=== PATIENT | female | born 1950 | race African-American/Black ===

== ENCOUNTER 2017-02-18 20:32 | Emergency (ER) | payer MEDICARE, MEDICAID ==
[~2017-02-18] VITALS: Ht 170.2 cm; Wt 84.0 kg
[~2017-02-18 20:32] MED LIST: AMLO10TA4 PO; Aspirin PO; CARI350T PO; HYDR-519 PO; OMEP20CA4 PO
[2017-02-18 22:00] LABS: CHLORIDE 115 mEq/L (98-107)
[2017-02-18 22:01] LABS: INR 1.2; PROTHROMBIN TIME 12.7 sec (9.4-11.6)
[2017-02-18 22:02] LABS: BASOPHILS % 1.3 % (0.0-2.0); EOSINOPHILS % 2.3 % (0.0-5.0); HEMATOCRIT. 34.3 % (36.0-48.0); HEMOGLOBIN. 11.2 g/dL (12.0-16.0); LYMPHOCYTES % 63.9 % (20.0-50.0); MEAN CORPUSCULAR HEMOGLOBIN 34.5 pg (28.0-32.0); MEAN CORPUSCULAR VOLUME 105.3 fL (81.0-99.0); MEAN PLATELET VOLUME 9.7 fl (7.4-10.4); MONOCYTES % 6.5 % (2.0-8.0); PLATELET 187 x1000/uL (130-400); RED BLOOD CELL COUNT 3.26 mill/uL (4.2-5.4); RED CELL DISTRIBUTION WIDTH 15.2 % (11.6-14.6)
[2017-02-18 22:03] LABS: CARBON DIOXIDE 16 mEq/L (21-32)
[2017-02-18 22:06] LABS: ETHANOL BLOOD 266 mg/dL
[2017-02-18 22:15] VITALS: BP 136/99
== END 2017-02-19 00:31 | disposition home or self-care (01) ==
LOC: ER 20:52
DX: F10.129 Alcohol abuse with intoxication, unspecified (principal); Y90.8 Blood alcohol level of 240 mg/100 ml or more; F32.9 Major depressive disorder, single episode, unspecified; I10 Essential (primary) hypertension
CPT/HCPCS: 36415; 80053; 85025; 85610; 99284; G0482

== ENCOUNTER 2018-02-28 15:11 | Emergency (ER) | payer MEDICARE, MEDICAID ==
[~2018-02-28] VITALS: Ht 149.9 cm; Wt 71.0 kg
[~2018-02-28 15:11] MED LIST changes: -CARI350T PO; +S350 PO
[2018-02-28 16:01] VITALS: BP 174/71
== END 2018-02-28 22:47 | disposition left against medical advice (07) ==
LOC: ER 15:11
DX: L29.9 Pruritus, unspecified (principal); F32.9 Major depressive disorder, single episode, unspecified; I10 Essential (primary) hypertension; F12.10 Cannabis abuse, uncomplicated; Z98.890 Other specified postprocedural states; Z90.49 Acquired absence of other specified parts of digestive tract
CPT/HCPCS: 99281

== ENCOUNTER 2018-03-10 13:52 | Emergency (ER) | payer MEDICARE, MEDICAID ==
[~2018-03-10] VITALS: Ht 157.5 cm; Wt 71.0 kg
[2018-03-10 13:58] VITALS: BP 136/58
== END 2018-03-10 16:56 | disposition home or self-care (01) ==
LOC: ER 15:14
DX: T49.5X5A Adverse effect of ophthalmological drugs and preparations, initial encounter (principal); I10 Essential (primary) hypertension; Y92.098 Other place in other non-institutional residence as the place of occurrence of the external cause
CPT/HCPCS: 99281

== ENCOUNTER 2021-12-13 22:55 | Emergency (ER) | payer MEDICARE, MEDICAID ==
[~2021-12-13] VITALS: Ht 149.9 cm; Wt 65.0 kg
[~2021-12-13 22:55] MED LIST changes: +AMLO-138 PO; -AMLO10TA4 PO; +GABA-532 PO; -S350 PO
[2021-12-14] MEDS ORDERED: HYDR-4001 MT (01:28)
[2021-12-14] MEDS ORDERED: HYDROCODONE/ACETAMINOPHEN 10/325MG TABLET PO ONE (01:30)
[2021-12-14] MEDS ORDERED: DEXAMETHASONE 4MG TABLET PO ONE (01:30)
[2021-12-14] MEDS ORDERED: KETOROLAC 60MG/2ML VIAL IM ONE (01:30)
[2021-12-14 02:05] VITALS: BP 114/78
== END 2021-12-14 02:05 | disposition home or self-care (01) ==
LOC: ER 22:55
DX: M54.2 Cervicalgia (principal); I10 Essential (primary) hypertension; Z79.899 Other long term (current) drug therapy
CPT/HCPCS: 96372; 99283; J1885; J8540

== ENCOUNTER 2022-03-15 17:01 | Inpatient (IN) | payer MEDICARE, MEDICAID ==
[~2022-03-15] VITALS: Ht 157.5 cm; Wt 76.3 kg
[~2022-03-15 17:01] MED LIST changes: +HYDR-4001 MT
[2022-03-15] MEDS ORDERED: ACETAMINOPHEN 650MG/20.3ML UDC PO ONE (19:30)
[2022-03-15] MEDS ORDERED: MORPHINE SULFATE 2 MG/ML CPJ (NOT FOR IM USE) IV ONE (22:45)
[2022-03-16 00:14] LABS: BASOPHILS % 1.6 % (0.0-2.0); EOSINOPHILS % 2.6 % (0.0-5.0); HEMATOCRIT. 30.3 % (36.0-48.0); HEMOGLOBIN. 9.8 g/dL (12.0-16.0); LYMPHOCYTES % 64.1 % (20.0-50.0); MEAN CORPUSCULAR HEMOGLOBIN 30.7 pg (28.0-32.0); MEAN CORPUSCULAR VOLUME 94.3 fL (81.0-99.0); MEAN PLATELET VOLUME 8.1 fl (7.4-10.4); MONOCYTES % 6.3 % (2.0-8.0); NEUTROPHILS % 25.4 % (40.0-76.0); PLATELET 369 x1000/uL (130-400); RED BLOOD CELL COUNT 3.21 mill/uL (4.2-5.4); RED CELL DISTRIBUTION WIDTH 15.9 % (11.6-14.6)
[2022-03-16 00:21] LABS: CHLORIDE 111 mEq/L (98-107)
[2022-03-16] MEDS ORDERED: IPRATROPIUM/ALBUTEROL 0.5-3(2.5)MG/3ML NEB HHN PRN (02:45)
[2022-03-16] MEDS ORDERED: LORAZEPAM 0.5MG TABLET PO PRN (02:45)
[2022-03-16] MEDS ORDERED: GUAIFENESIN 200MG/10ML SUGAR FREE UDC PO PRN (02:45)
[2022-03-16] MEDS ORDERED: ONDANSETRON HCL 4MG/2ML INJ IV PRN (02:45)
[2022-03-16] MEDS ORDERED: ACETAMINOPHEN 325MG TABLET PO PRN ×2 (02:45)
[2022-03-16] MEDS ORDERED: DIPHENHYDRAMINE 50MG/ML VIAL IV PRN (02:45)
[2022-03-16] MEDS: CLONIDINE 0.1MG TABLET PO PRN (03:05)
[2022-03-16] MEDS: HYDROCODONE/ACETAMINOPHEN 5/325MG TABLET PO PRN ×4 (03:05→22:30)
[2022-03-16] MEDS ORDERED: HYDRALAZINE 20MG/ML VIAL IV PRN (03:30)
[2022-03-16] MEDS: SODIUM CHLORIDE 0.9% 1,000 ML IV SCH ×3 (04:50→22:31)
[2022-03-16] MEDS: GABAPENTIN 300MG CAPSULE PO SCH ×4 (05:42→16:41)
[2022-03-16 06:30] LABS: CHLORIDE 108 mEq/L (98-107)
[2022-03-16 06:34] LABS: LDL CHOLESTEROL 20 mg/dL (5-100); TOTAL IRON BINDING CAPACITY 392 ug/dL (250-450)
[2022-03-16 06:40] LABS: HDL CHOLESTEROL 42 mg/dL (40-59)
[2022-03-16 06:41] LABS: HEMATOCRIT 27.4 % (36.0-48.0); MEAN CORPUSCULAR HEMOGLOBIN 30.7 pg (28.0-32.0); MEAN CORPUSCULAR VOLUME 92.9 fL (81.0-99.0); PLATELET 339 x1000/uL (130-400); RED BLOOD CELL COUNT 2.95 mill/uL (4.2-5.4); RED CELL DISTRIBUTION WIDTH 16.1 % (11.6-14.6)
[2022-03-16] MEDS ORDERED: MAGNESIUM 2 G PREMIX 50 ML IV SCH (08:15)
[2022-03-16] MEDS ORDERED: DEXTROSE 50% WATER 50ML SYRINGE IV SCH (08:15)
[2022-03-16] MEDS ORDERED: INSULIN REGULAR (HUMULIN R) 300UNITS/3ML VIAL IV SCH (08:15)
[2022-03-16] MEDS: AMLODIPINE 10MG TABLET PO SCH (09:00)
[2022-03-16] MEDS ORDERED: CLOPIDOGREL 75MG TABLET PO SCH (09:00)
[2022-03-16] MEDS: ENOXAPARIN 30MG/0.3ML SYR SUBCUT SCH (09:00)
[2022-03-16] MEDS: ASPIRIN 81MG TABLET PO SCH (09:00)
[2022-03-16] MEDS: DOCUSATE SODIUM 100MG CAPSULE PO PRN (10:35)
[2022-03-16] MEDS: KETOROLAC 30MG/ML VIAL IV PRN (10:43)
[2022-03-16 12:00] VITALS: BP 154/53
[2022-03-16] MEDS ORDERED: SODIUM POLYSTYRENE SULFONATE 15 G/60 ML BOT PO SCH (12:30)
[2022-03-16] MEDS ORDERED: OMEP10CA5 MT (15:42)
[2022-03-16] MEDS ORDERED: CARV6.2548 MT (15:42)
[2022-03-16] MEDS ORDERED: TRAZ-251 MT (15:42)
[2022-03-16] MEDS ORDERED: LOSA100T32 MT (15:42)
[2022-03-16] MEDS ORDERED: HYDR25TA MT (15:42)
[2022-03-16] MEDS ORDERED: CARV6.2548 PO (15:42)
[2022-03-16 15:55] VITALS: BP 144/57
[2022-03-16 16:00] VITALS: BP 142/55
[2022-03-16] MEDS ORDERED: INFLUENZA VACCINE 05/PF 0.5 ML SYRINGE IM ONE (16:45)
[2022-03-16] MEDS ORDERED: NALOXONE HCL 0.4MG/ML VIAL IV PRN (18:30)
[2022-03-16 20:00] VITALS: BP 155/32
[2022-03-16] MEDS: FAMOTIDINE 20MG TABLET PO SCH (22:29)
[2022-03-17] VITALS: BP 145/70
[2022-03-17] MEDS: HYDROCODONE/ACETAMINOPHEN 5/325MG TABLET PO PRN ×3 (02:43→21:44)
[2022-03-17 04:00] VITALS: BP 143/52
[2022-03-17] MEDS: KETOROLAC 30MG/ML VIAL IV PRN ×2 (05:39→11:13)
[2022-03-17 08:30] VITALS: BP 145/52
[2022-03-17] MEDS: GABAPENTIN 300MG CAPSULE PO SCH ×3 (09:18→16:57)
[2022-03-17] MEDS: ENOXAPARIN 30MG/0.3ML SYR SUBCUT SCH (09:18)
[2022-03-17] MEDS: ASPIRIN 81MG TABLET PO SCH (09:18)
[2022-03-17] MEDS: AMLODIPINE 10MG TABLET PO SCH (09:18)
[2022-03-17] MEDS: SODIUM CHLORIDE 0.9% 1,000 ML IV SCH ×2 (09:19→18:39)
[2022-03-17 12:00] VITALS: BP 151/56
[2022-03-17 16:00] VITALS: BP 150/53
[2022-03-17 20:00] VITALS: BP 164/61
[2022-03-17] MEDS: CLONIDINE 0.1MG TABLET PO PRN (20:32)
[2022-03-17] MEDS: FAMOTIDINE 20MG TABLET PO SCH (20:32)
[2022-03-18] VITALS: BP 131/86
[2022-03-18 04:00] VITALS: BP 139/40
[2022-03-18] MEDS: HYDROCODONE/ACETAMINOPHEN 5/325MG TABLET PO PRN ×4 (04:23→23:27)
[2022-03-18] MEDS: SODIUM CHLORIDE 0.9% 1,000 ML IV SCH ×2 (04:24→14:55)
[2022-03-18 08:00] VITALS: BP 147/48
[2022-03-18 08:05] LABS: BASOPHILS % 1.2 % (0.0-2.0); EOSINOPHILS % 2.9 % (0.0-5.0); HEMOGLOBIN. 9.4 g/dL (12.0-16.0); LYMPHOCYTES % 47.7 % (20.0-50.0); MEAN CORPUSCULAR HEMOGLOBIN 31.3 pg (28.0-32.0); MEAN CORPUSCULAR VOLUME 93.6 fL (81.0-99.0); MEAN PLATELET VOLUME 8.7 fl (7.4-10.4); MONOCYTES % 9.6 % (2.0-8.0); NEUTROPHILS % 38.6 % (40.0-76.0); PLATELET 340 x1000/uL (130-400); RED BLOOD CELL COUNT 2.99 mill/uL (4.2-5.4); RED CELL DISTRIBUTION WIDTH 15.8 % (11.6-14.6)
[2022-03-18 08:17] LABS: CHLORIDE 112 mEq/L (98-107)
[2022-03-18 08:39] LABS: PHOSPHORUS 3.5 mg/dL (2.5-4.9)
[2022-03-18] MEDS: ASPIRIN 81MG TABLET PO SCH (09:01)
[2022-03-18] MEDS: AMLODIPINE 10MG TABLET PO SCH (09:01)
[2022-03-18] MEDS: GABAPENTIN 300MG CAPSULE PO SCH ×3 (09:01→17:54)
[2022-03-18] MEDS ORDERED: HYDR-4005 MT (09:32)
[2022-03-18] MEDS ORDERED: GABA-533 MT (09:32)
[2022-03-18] MEDS ORDERED: MAGNESIUM 2 G PREMIX 50 ML IV NR (11:00)
[2022-03-18 12:00] VITALS: BP 156/52
[2022-03-18 16:00] VITALS: BP 150/51
[2022-03-18] MEDS: DOCUSATE SODIUM 100MG CAPSULE PO PRN (17:53)
[2022-03-18 20:00] VITALS: BP 139/51
[2022-03-18] MEDS: FAMOTIDINE 20MG TABLET PO SCH (20:57)
[2022-03-19] VITALS: BP 145/49
[2022-03-19] MEDS: SODIUM CHLORIDE 0.9% 1,000 ML IV SCH ×3 (01:28→20:54)
[2022-03-19 04:00] VITALS: BP 151/47
[2022-03-19 07:41] LABS: HEMATOCRIT. 27.2 % (36.0-48.0); HEMOGLOBIN. 9.3 g/dL (12.0-16.0); LYMPHOCYTES % 45.7 % (20.0-50.0); MEAN CORPUSCULAR VOLUME 93.8 fL (81.0-99.0); MEAN PLATELET VOLUME 8.9 fl (7.4-10.4); MONOCYTES % 9.3 % (2.0-8.0); PLATELET 307 x1000/uL (130-400); RED CELL DISTRIBUTION WIDTH 15.9 % (11.6-14.6)
[2022-03-19 08:00] VITALS: BP 152/56
[2022-03-19] MEDS: GABAPENTIN 300MG CAPSULE PO SCH ×3 (08:55→16:46)
[2022-03-19] MEDS: ASPIRIN 81MG TABLET PO SCH (08:55)
[2022-03-19] MEDS: AMLODIPINE 10MG TABLET PO SCH (08:55)
[2022-03-19 09:11] LABS: CHLORIDE 112 mEq/L (98-107)
[2022-03-19 09:18] LABS: PHOSPHORUS 3.5 mg/dL (2.5-4.9)
[2022-03-19] MEDS ORDERED: KETOROLAC 30MG/ML VIAL IV PRN (10:45)
[2022-03-19] MEDS ORDERED: THROMBIN (BOVINE) 5000 UNITS/VIAL TOP ONE (10:53)
[2022-03-19] MEDS ORDERED: POLYMYXIN B SULFATE 500000 UNITS/VIAL ONE (10:53)
[2022-03-19] MEDS ORDERED: BACITRACIN 15GM TUBE TOP ONE (10:54)
[2022-03-19] MEDS ORDERED: BUPIVACAINE HCL/PF 0.5% (5MG/ML) 10ML ONE (10:54)
[2022-03-19] MEDS ORDERED: HEPARIN SODIUM 1,000 UNIT/1ML VIAL IV ONE (10:54)
[2022-03-19] MEDS ORDERED: LIDOCAINE HCL 1% 10 MG/ML 10ML VIAL ONE (10:54)
[2022-03-19 12:00] VITALS: BP 147/73
[2022-03-19] MEDS ORDERED: ONDANSETRON HCL 4MG/2ML INJ IV PRN (13:15)
[2022-03-19] MEDS ORDERED: PROPOFOL 200MG/20ML VIAL IV ONE (13:29)
[2022-03-19] MEDS ORDERED: MIDAZOLAM HCL 2 MG/2 ML VIAL ONE (13:29)
[2022-03-19] MEDS ORDERED: CEFAZOLIN SODIUM 1000MG/VIAL ONE (13:29)
[2022-03-19] MEDS ORDERED: FENTANYL CITRATE/PF 50MCG/ML 2ML VIAL ONE (13:30)
[2022-03-19] MEDS ORDERED: PHENYLEPHRINE HCL 10 MG/ML 1ML (IV VIAL) IV ONE (13:31)
[2022-03-19] MEDS ORDERED: HYDROMORPHONE HCL/PF 2MG/ML CPJ ONE (14:46)
[2022-03-19 16:00] VITALS: BP_SYST 147; BP_SYST 152; BP_DIAS 57; BP_DIAS 66
[2022-03-19] MEDS: HYDROCODONE/ACETAMINOPHEN 5/325MG TABLET PO PRN ×2 (16:54→20:53)
[2022-03-19] MEDS: MORPHINE SULFATE 4 MG/ML CPJ (NOT FOR IM USE) IV PRN ×2 (17:55→22:36)
[2022-03-19] MEDS ORDERED: MAGNESIUM 2 G PREMIX 50 ML IV NR (18:00)
[2022-03-19 20:00] VITALS: BP 131/51
[2022-03-19] MEDS: FAMOTIDINE 20MG TABLET PO SCH (20:39)
[2022-03-20] VITALS: BP 126/51
[2022-03-20] MEDS: MORPHINE SULFATE 4 MG/ML CPJ (NOT FOR IM USE) IV PRN ×5 (03:52→23:58)
[2022-03-20 04:00] VITALS: BP 145/56
[2022-03-20] MEDS: SODIUM CHLORIDE 0.9% 1,000 ML IV SCH ×2 (06:45→18:29)
[2022-03-20 08:00] VITALS: BP 98/59
[2022-03-20] MEDS: ASPIRIN 81MG TABLET PO SCH (08:34)
[2022-03-20] MEDS: GABAPENTIN 300MG CAPSULE PO SCH ×3 (08:34→18:30)
[2022-03-20] MEDS: AMLODIPINE 10MG TABLET PO SCH (08:35)
[2022-03-20] MEDS: DOCUSATE SODIUM 100MG CAPSULE PO PRN (09:37)
[2022-03-20 12:00] VITALS: BP 156/52
[2022-03-20 12:03] LABS: CHLORIDE 108 mEq/L (98-107); PHOSPHORUS 4.9 mg/dL (2.5-4.9)
[2022-03-20 15:24] LABS: BASOPHILS % 0.5 % (0.0-2.0); EOSINOPHILS % 0.3 % (0.0-5.0); HEMATOCRIT. 25.1 % (36.0-48.0); HEMOGLOBIN. 8.3 g/dL (12.0-16.0); LYMPHOCYTES % 27.7 % (20.0-50.0); MEAN CORPUSCULAR HEMOGLOBIN 31.2 pg (28.0-32.0); MEAN CORPUSCULAR VOLUME 93.8 fL (81.0-99.0); MEAN PLATELET VOLUME 8.2 fl (7.4-10.4); MONOCYTES % 8.3 % (2.0-8.0); NEUTROPHILS % 63.2 % (40.0-76.0); PLATELET 297 x1000/uL (130-400); RED BLOOD CELL COUNT 2.67 mill/uL (4.2-5.4); RED CELL DISTRIBUTION WIDTH 15.8 % (11.6-14.6)
[2022-03-20 16:00] VITALS: BP 116/53
[2022-03-20 20:00] VITALS: BP 145/44
[2022-03-20] MEDS ORDERED: SODIUM POLYSTYRENE SULFONATE 15 G/60 ML BOT PO NR (20:00)
[2022-03-20] MEDS: FAMOTIDINE 20MG TABLET PO SCH (21:08)
[2022-03-20] MEDS: HYDROCODONE/ACETAMINOPHEN 5/325MG TABLET PO PRN (22:13)
[2022-03-21] VITALS: BP 143/48
[2022-03-21] MEDS: SODIUM CHLORIDE 0.9% 1,000 ML IV SCH (02:45)
[2022-03-21 04:00] VITALS: BP_SYST 103; BP_SYST 105; BP_DIAS 53
[2022-03-21] MEDS: MORPHINE SULFATE 4 MG/ML CPJ (NOT FOR IM USE) IV PRN ×6 (04:58→21:53)
[2022-03-21] MEDS: GABAPENTIN 300MG CAPSULE PO SCH ×3 (08:59→18:23)
[2022-03-21] MEDS: ASPIRIN 81MG TABLET PO SCH (08:59)
[2022-03-21] MEDS: AMLODIPINE 10MG TABLET PO SCH (09:00)
[2022-03-21 09:41] LABS: CHLORIDE 116 mEq/L (98-107); PHOSPHORUS 4.3 mg/dL (2.5-4.9)
[2022-03-21 12:00] VITALS: BP_SYST 134; BP_SYST 95; BP_DIAS 45; BP_DIAS 47
[2022-03-21] MEDS ORDERED: DEXTROSE 50% WATER 50ML SYRINGE IV NR (13:30)
[2022-03-21] MEDS ORDERED: INSULIN REGULAR (HUMULIN R) 300UNITS/3ML VIAL IV NR (13:30)
[2022-03-21 16:00] VITALS: BP 95/47
[2022-03-21 17:03] LABS: BASOPHILS % 0.5 % (0.0-2.0); LYMPHOCYTES % 47.6 % (20.0-50.0); MEAN CORPUSCULAR HEMOGLOBIN 31.1 pg (28.0-32.0); MEAN CORPUSCULAR VOLUME 97.5 fL (81.0-99.0); MEAN PLATELET VOLUME 9.5 fl (7.4-10.4); MONOCYTES % 10.2 % (2.0-8.0); NEUTROPHILS % 38.7 % (40.0-76.0); PLATELET 249 x1000/uL (130-400); RED BLOOD CELL COUNT 2.56 mill/uL (4.2-5.4); RED CELL DISTRIBUTION WIDTH 16.7 % (11.6-14.6)
[2022-03-21 17:23] LABS: CHLORIDE 115 mEq/L (98-107)
[2022-03-21] MEDS: CLONIDINE 0.1MG TABLET PO PRN (18:22)
[2022-03-21 20:00] VITALS: BP 142/52
[2022-03-21] MEDS: FAMOTIDINE 20MG TABLET PO SCH (21:45)
[2022-03-22] VITALS: BP 159/61
[2022-03-22] MEDS: MORPHINE SULFATE 4 MG/ML CPJ (NOT FOR IM USE) IV PRN ×4 (00:38→14:20)
[2022-03-22 04:00] VITALS: BP 138/52
[2022-03-22 08:00] VITALS: BP 175/56
[2022-03-22] MEDS: GABAPENTIN 300MG CAPSULE PO SCH ×2 (09:28→14:19)
[2022-03-22] MEDS: ASPIRIN 81MG TABLET PO SCH (09:28)
[2022-03-22] MEDS: AMLODIPINE 10MG TABLET PO SCH (09:32)
[2022-03-22 12:00] VITALS: BP 145/58
[2022-03-22 15:25] VITALS: BP 145/58
[2022-03-22 16:00] VITALS: BP 138/54
== END 2022-03-22 16:25 | disposition home health service (06) | DRG 252 ==
LOC: ER 17:01 → 6EST 22:43 → ENRESERV 03-16 11:41 → 7EST 03-16 18:15
PROVIDERS: ADMIT Hospitalist; ATTEND Hospitalist
PROC: 02HV33Z Insertion of Infusion Device into Superior Vena Cava, Percutaneous Approach (ICD-10-PCS; 2022-03-17)
PROC: B548ZZA Ultrasonography of Superior Vena Cava, Guidance (ICD-10-PCS; 2022-03-17)
PROC: 04CK0ZZ Extirpation of Matter from Right Femoral Artery, Open Approach (ICD-10-PCS; principal; 2022-03-19)
DX: I70.201 Unspecified atherosclerosis of native arteries of extremities, right leg (principal); U07.1 COVID-19; E87.1 Hypo-osmolality and hyponatremia; N17.9 Acute kidney failure, unspecified; I77.9 Disorder of arteries and arterioles, unspecified; E83.42 Hypomagnesemia; E87.5 Hyperkalemia; M85.861 Other specified disorders of bone density and structure, right lower leg; I10 Essential (primary) hypertension; M79.7 Fibromyalgia; D63.8 Anemia in other chronic diseases classified elsewhere; Z82.49 Family history of ischemic heart disease and other diseases of the circulatory system
CPT/HCPCS: 36415; 36573; 71045; 80048; 80053; 80061; 82607; 82728; 82746; 82962; 83036; 83540; 83550; 83735; 84100; 84145; 85025; 85027; 87426; 88304; 88311; 93922; 93971; 97116; 97162; 97166; 97530; 97535; 99285; C1725; J0690; J1170; J1644; J1650; J1815; J1885; J2250; J2270; J2370; J2405; J2704; J3010; J3475; J3490; J7030

== ENCOUNTER 2022-05-05 09:15 | Emergency (ER) | payer MEDICARE, MEDICAID ==
[~2022-05-05] VITALS: Ht 162.6 cm; Wt 65.0 kg
[~2022-05-05 09:15] MED LIST changes: +CARV6.2548 MT; +CARV6.2548 PO; +GABA-533 MT; +HYDR-4005 MT; +HYDR25TA MT; +LOSA100T32 MT; +OMEP10CA5 MT; +TRAZ-251 MT
[2022-05-05] MEDS ORDERED: KETOROLAC 30MG/ML VIAL IV STA ×2 (09:57→12:01)
[2022-05-05] MEDS ORDERED: SODIUM CHLORIDE 0.9% 1,000 ML IV ONE (10:00)
[2022-05-05 12:20] LABS: BASOPHILS % 0.8 % (0.0-2.0); EOSINOPHILS % 1.6 % (0.0-5.0); HEMATOCRIT. 35.2 % (36.0-48.0); HEMOGLOBIN. 11.4 g/dL (12.0-16.0); LYMPHOCYTES % 49.4 % (20.0-50.0); MEAN CORPUSCULAR HEMOGLOBIN 29.2 pg (28.0-32.0); MEAN PLATELET VOLUME 8.2 fl (7.4-10.4); NEUTROPHILS % 40.2 % (40.0-76.0); PLATELET 382 x1000/uL (130-400); RED BLOOD CELL COUNT 3.91 mill/uL (4.2-5.4); RED CELL DISTRIBUTION WIDTH 15.8 % (11.6-14.6)
[2022-05-05 12:22] VITALS: BP 153/86
[2022-05-05 15:27] LABS: CHLORIDE 106 mEq/L (98-107)
== END 2022-05-05 14:33 | disposition home or self-care (01) ==
LOC: ER 09:26
DX: R53.1 Weakness (principal); I10 Essential (primary) hypertension; M79.7 Fibromyalgia; Z20.822 Contact with and (suspected) exposure to COVID-19; Z79.82 Long term (current) use of aspirin
CPT/HCPCS: 36415; 71045; 80053; 83880; 84484; 85025; 87426; 93005; 96361; 96374; 99285; C9803; J1885; J7030

== ENCOUNTER 2022-08-12 16:33 | Inpatient (IN) | payer MEDICARE, OTHER ==
[~2022-08-12] VITALS: Ht 149.9 cm; Wt 68.5 kg
[2022-08-12] MEDS ORDERED: LABETALOL 5MG/ML SYR 20 MG/4 ML SYRINGE IV NR ×2 (17:09→18:15)
[2022-08-12 18:37] LABS: BASOPHILS % 0.6 % (0.0-2.0); EOSINOPHILS % 1.1 % (0.0-5.0); HEMOGLOBIN. 10.2 g/dL (12.0-16.0); LYMPHOCYTES % 51.6 % (20.0-50.0); MEAN CORPUSCULAR HEMOGLOBIN 31.8 pg (28.0-32.0); MEAN PLATELET VOLUME 8.6 fl (7.4-10.4); MONOCYTES % 8.3 % (2.0-8.0); NEUTROPHILS % 38.4 % (40.0-76.0); PLATELET 446 x1000/uL (130-400)
[2022-08-12 18:46] LABS: CHLORIDE 114 mEq/L (98-107)
[2022-08-12 19:00] LABS: ETHANOL BLOOD 12 mg/dL
[2022-08-12] MEDS ORDERED: MAGNESIUM/ALUMINUM HYDROXIDE/SIMETHICONE 30ML UDC PO PRN (20:00)
[2022-08-12] MEDS ORDERED: KETOROLAC 15MG/ML VIAL IV PRN (20:00)
[2022-08-12] MEDS ORDERED: CLONIDINE 0.1MG TABLET PO PRN (20:00)
[2022-08-12] MEDS ORDERED: DOCUSATE SODIUM 100MG CAPSULE PO PRN (20:00)
[2022-08-12] MEDS ORDERED: GUAIFENESIN 200MG/10ML SUGAR FREE UDC PO PRN (20:00)
[2022-08-12] MEDS ORDERED: NA PHOS,M-B/NA PHOS,DI-BA ENEMA 118ML PR PRN (20:00)
[2022-08-12] MEDS ORDERED: ONDANSETRON HCL 4MG/2ML INJ IV PRN (20:00)
[2022-08-12] MEDS ORDERED: IPRATROPIUM/ALBUTEROL 0.5-3(2.5)MG/3ML NEB NEB PRN (20:00)
[2022-08-12] MEDS ORDERED: TRAMADOL 50MG TABLET PO PRN (20:00)
[2022-08-12] MEDS ORDERED: ZOLPIDEM TARTRATE 5MG TABLET PO PRN (20:00)
[2022-08-12] MEDS ORDERED: ACETAMINOPHEN 325MG TABLET PO PRN ×2 (20:00)
[2022-08-12 20:54] LABS: FOLIC ACID (FOLATE) SERUM >20 ng/mL ng/mL (>5.38); VITAMIN B12 SERUM 183 pg/mL (211-911)
[2022-08-12] MEDS: LISINOPRIL 20MG TABLET PO SCH (21:00)
[2022-08-12 21:16] LABS: T4 FREE 0.93 ng/dL (0.76-1.46)
[2022-08-12] MEDS: HYDRALAZINE HCL 50MG TABLET PO SCH (22:00)
[2022-08-12] MEDS: NIFEDIPINE XL 60MG TAB PO SCH (22:13)
[2022-08-12] MEDS: SPIRONOLACTONE 25MG TABLET PO SCH (22:13)
[2022-08-12] MEDS: NITROGLYCERIN OINT 1GM/INCH UDPKT TD SCH (22:13)
[2022-08-12] MEDS: FUROSEMIDE 20MG/2ML VIAL IVP SCH (22:13)
[2022-08-12] MEDS: FAMOTIDINE 20MG TABLET PO SCH (22:14)
[2022-08-12] MEDS: ENOXAPARIN 40MG/0.4ML SYR SUBCUT SCH (22:14)
[2022-08-13 00:26] LABS: CREATINE KINASE 33 IU/L (26-192); CREATINE KINASE MB FRACTION < 1.0 ng/mL (0.5-3.6)
[2022-08-13 01:50] LABS: INR 1.1; PROTHROMBIN TIME 11.5 sec (9.6-11.0)
[2022-08-13 06:00] VITALS: BP 148/54
[2022-08-13 08:00] VITALS: BP 163/64
[2022-08-13] MEDS: ASPIRIN 325MG EC TABLET PO SCH (09:00)
[2022-08-13] MEDS: SPIRONOLACTONE 25MG TABLET PO SCH ×2 (09:37→20:58)
[2022-08-13] MEDS: LISINOPRIL 20MG TABLET PO SCH ×2 (09:38→20:58)
[2022-08-13] MEDS: FAMOTIDINE 20MG TABLET PO SCH (09:38)
[2022-08-13] MEDS: CYANOCOBALAMIN 1000MCG TABLET PO SCH (09:38)
[2022-08-13] MEDS: FUROSEMIDE 20MG/2ML VIAL IVP SCH ×2 (09:39→20:58)
[2022-08-13 11:00] LABS: BASOPHILS % 0.5 % (0.0-2.0); HEMATOCRIT. 34.7 % (36.0-48.0); HEMOGLOBIN. 11.1 g/dL (12.0-16.0); LYMPHOCYTES % 44.4 % (20.0-50.0); MEAN CORPUSCULAR HEMOGLOBIN 31.4 pg (28.0-32.0); MEAN CORPUSCULAR VOLUME 98.4 fL (81.0-99.0); MEAN PLATELET VOLUME 9.1 fl (7.4-10.4); MONOCYTES % 7.2 % (2.0-8.0); NEUTROPHILS % 45.9 % (40.0-76.0); PLATELET 420 x1000/uL (130-400); RED BLOOD CELL COUNT 3.53 mill/uL (4.2-5.4); RED CELL DISTRIBUTION WIDTH 20.4 % (11.6-14.6)
[2022-08-13 11:57] LABS: CHLORIDE 110 mEq/L (98-107)
[2022-08-13 12:00] VITALS: BP 127/59
[2022-08-13 12:13] LABS: CREATINE KINASE 116 IU/L (26-192); CREATINE KINASE MB FRACTION < 1.0 ng/mL (0.5-3.6); PHOSPHORUS 4.7 mg/dL (2.5-4.9)
[2022-08-13] MEDS: NITROGLYCERIN OINT 1GM/INCH UDPKT TD SCH ×3 (14:00→20:59)
[2022-08-13] MEDS: HYDRALAZINE HCL 50MG TABLET PO SCH ×2 (14:00→20:58)
[2022-08-13] MEDS ORDERED: MAGNESIUM 4 G PREMIX 100 ML IV SCH (15:00)
[2022-08-13] MEDS: BUTALBITAL/ACETAMINOPHEN/CAFFEINE 50/325/40MG TABLET PO PRN ×2 (15:21→20:57)
[2022-08-13 16:00] VITALS: BP 115/59
[2022-08-13] MEDS: CARVEDILOL 3.125 MG TABLET PO SCH (18:04)
[2022-08-13] MEDS: NIFEDIPINE XL 60MG TAB PO SCH (18:05)
[2022-08-13 20:00] VITALS: BP 113/41
[2022-08-13] MEDS: ENOXAPARIN 40MG/0.4ML SYR SUBCUT SCH (20:58)
[2022-08-13] MEDS ORDERED: ALBUTEROL (0.083%) 2.5MG/3ML NEB HHN PRN (22:00)
[2022-08-13] MEDS ORDERED: IPRATROPIUM BROMIDE (0.02%) 0.5MG/2.5ML NEB HHN PRN (22:00)
[2022-08-14] VITALS: BP 130/51
[2022-08-14 04:00] VITALS: BP 116/49
[2022-08-14] MEDS: NIFEDIPINE XL 60MG TAB PO SCH (06:00)
[2022-08-14] MEDS: NITROGLYCERIN OINT 1GM/INCH UDPKT TD SCH (06:00)
[2022-08-14] MEDS: HYDRALAZINE HCL 50MG TABLET PO SCH (06:00)
[2022-08-14] MEDS: CARVEDILOL 3.125 MG TABLET PO SCH (06:44)
[2022-08-14] MEDS: BUTALBITAL/ACETAMINOPHEN/CAFFEINE 50/325/40MG TABLET PO PRN (06:44)
[2022-08-14 08:00] VITALS: BP 99/33
[2022-08-14 08:29] LABS: PHOSPHORUS 4.5 mg/dL (2.5-4.9)
[2022-08-14] MEDS: ASPIRIN 325MG EC TABLET PO SCH (08:44)
[2022-08-14] MEDS: FAMOTIDINE 20MG TABLET PO SCH (08:44)
[2022-08-14] MEDS: CYANOCOBALAMIN 1000MCG TABLET PO SCH (08:44)
[2022-08-14] MEDS ORDERED: COR3 PO (11:11)
[2022-08-14] MEDS ORDERED: CYAN-50 PO (11:11)
[2022-08-14] MEDS ORDERED: LISI20TA31 PO (11:11)
[2022-08-14] MEDS ORDERED: HYDR-4135 PO (11:11)
[2022-08-14] MEDS ORDERED: NIFE-32 PO (11:11)
[2022-08-14] MEDS ORDERED: ISMO20 MT (11:11)
[2022-08-14 11:34] VITALS: BP 109/109
[2022-08-14 12:00] VITALS: BP 99/33
== END 2022-08-14 13:30 | disposition home or self-care (01) | DRG 291 ==
LOC: ER 16:33 → MICUSO 18:10 → SUPCPDRO 19:51 → 7WST 08-13 05:15
PROVIDERS: ADMIT Internal Medicine; ATTEND Internal Medicine
DX: I11.0 Hypertensive heart disease with heart failure (principal); E43 Unspecified severe protein-calorie malnutrition; I50.33 Acute on chronic diastolic (congestive) heart failure; I16.1 Hypertensive emergency; G43.909 Migraine, unspecified, not intractable, without status migrainosus; I16.0 Hypertensive urgency; D50.9 Iron deficiency anemia, unspecified; D72.829 Elevated white blood cell count, unspecified; D75.839 Thrombocytosis, unspecified; M79.7 Fibromyalgia; I73.9 Peripheral vascular disease, unspecified; E88.09 Other disorders of plasma-protein metabolism, not elsewhere classified; E87.8 Other disorders of electrolyte and fluid balance, not elsewhere classified; E78.1 Pure hyperglyceridemia; M85.80 Other specified disorders of bone density and structure, unspecified site; Z79.899 Other long term (current) drug therapy; D51.9 Vitamin B12 deficiency anemia, unspecified
CPT/HCPCS: 36415; 71045; 80048; 80053; 80061; 80320; 82550; 82553; 82607; 82746; 83036; 83540; 83550; 83735; 83880; 84100; 84439; 84443; 84484; 85025; 87340; 93005; 93970; 99291; J1650; J1940; J3475; J3490; G0480

== ENCOUNTER 2023-05-03 16:12 | Emergency (ER) | payer BC, MEDICAID ==
[~2023-05-03] VITALS: Ht 149.9 cm; Wt 75.0 kg
[~2023-05-03 16:12] MED LIST changes: -GABA-533 MT; +GABA-534 MT; -LOSA100T32 MT; +LOSA100T33 MT
[2023-05-03 16:22] VITALS: BP 138/76; PULSE 83; RESP 18; TEMP 98.4; O2SAT 99
== END 2023-05-04 00:50 | disposition left against medical advice (07) ==
LOC: ER 16:12
DX: S09.90XA Unspecified injury of head, initial encounter (principal); I10 Essential (primary) hypertension; M79.7 Fibromyalgia; Z79.899 Other long term (current) drug therapy; W18.39XA Other fall on same level, initial encounter; Y93.89 Activity, other specified; Y92.89 Other specified places as the place of occurrence of the external cause; Y99.8 Other external cause status
CPT/HCPCS: 36415; 80320; 99283; G0480